=== PATIENT | female | born 1985 | race Caucasian/White ===

== ENCOUNTER 2018-12-19 12:22 | Emergency (ER) | payer OTHER, SELFPAY ==
[2018-12-19 12:33] VITALS: BP 142/87; PULSE 96; RESP 14; TEMP 36.6; O2SAT 98
[2018-12-19 15:32] VITALS: BP 130/94; PULSE 80; RESP 14; O2SAT 98
--- NOTE | 2018-12-19 18:42 | ED_ITS ---
HPI - URI/Sore Throat <MARY Hernandez - Last Filed: 12/19/18 18:42> General Chief Complaint: Upper Respiratory Symptoms Stated Complaint: Sore Throat Time Seen by Provider: 12/19/18 15:04 Source: patient and family Mode of arrival: ambulatory Limitations: no limitations History of Present Illness HPI Narrative: The patient is a 32-year-old female presents with her son for chief complaint of sore throat. Her son at home has strep throat. She states her throat hurts. She has not taken anything. She denies any fevers nausea vomiting or diarrhea. She said she had some ear pain this morning. She denies abdominal pain chest pain cough or congestion. Related Data Previous Rx's Medication Instructions Recorded amoxicillin 875 mg PO BID #20 tab 12/19/18 Allergies Allergy/AdvReac Type Severity Reaction Status Date / Time No Known Drug Allergies Allergy Verified 12/19/18 12:36 Review of Systems <ARY Hernandez - Last Filed: 12/19/18 18:42> Review of Systems GENERAL: Denies chills, fatigue, malaise, fever, sweats. HEENT: See HPI RESPIRATORY: Denies dyspnea, cough, wheezing, hemoptysis, sputum. CARDIOVASCULAR: Denies chest pain, palpitations, orthopnea, edema, GASTROINTESTINAL: Denies nausea, vomiting, abdominal pain, diarrhea, constipation, melena. : Denies dysuria, frequency, incontinence, hematuria, urinary retention. MUSCULOSKELETAL: denies weakness, joint pain, or bony pain SKIN: Denies rash, skin lesions, or other NEUROLOGIC: Denies weakness, headache, numbness, change in speech, confusion, seizures, incoordination. PSYCHIATRIC: No concerning psychosocial issues. 12 point review of systems is negative except for those stated above PFSH <ARY Hernandez - Last Filed: 12/19/18 18:42> Social History Smoking Status: Former smoker Social History Smoking Status: Former smoker Exam <MARY Hernandez - Last Filed: 12/19/18 18:42> Narrative Exam Narrative: GENERAL: This is a well-nourished, well-developed patient, in no acute distress HEAD: Atraumatic. Normocephalic. No temporal or scalp tenderness. EYES: Pupils equal round and reactive. Extraocular motions intact. No scleral icterus. No injection or drainage. ENT: Nose without bleeding, purulent drainage or septal hematoma. Throat without erythema. Throat with bilateral tonsillar hypertrophy and purulent exudate. Uvula midline. Airway patent. NECK: Trachea midline. No JVD or lymphadenopathy. Supple, nontender, no meningeal signs. CARDIOVASCULAR: Regular rate and rhythm without murmurs, gallops, or rubs. RESPIRATORY: Clear to auscultation. Breath sounds equal bilaterally. No wheezes, rales, or rhonchi. No active coughing. No increased respiratory effort. No stridor. No accessory muscle use. GASTROINTESTINAL: Abdomen soft, non-tender, nondistended. No hepato- splenomegaly, or palpable masses. No guarding. EXTREMITIES: No clubbing, cyanosis, or edema. No joint tenderness, effusion, or edema noted. BACK: Nontender without deformity or crepitance. No flank tenderness. NEURO: AOx3. SKIN: No rash or erythema. Initial Vital Signs Initial Vital Signs: Vital Signs Temperature 97.8 F 12/19/18 12:33 Pulse Rate 96 H 12/19/18 12:33 Respiratory Rate 14 12/19/18 12:33 Blood Pressure 142/87 H 12/19/18 12:33 Pulse Oximetry 98 12/19/18 12:33 <Jeanette Olmstead DO - Last Filed: 12/19/18 19:11> Initial Vital Signs Initial Vital Signs: Vital Signs Temperature 97.8 F 12/19/18 12:33 Pulse Rate 96 H 12/19/18 12:33 Respiratory Rate 14 12/19/18 12:33 Blood Pressure 142/87 H 12/19/18 12:33 Pulse Oximetry 98 12/19/18 12:33 Course <MARY Hernandez - Last Filed: 12/19/18 18:42> Vital Signs - 8 hr 12/19/18 12:33 12/19/18 15:32 Temperature 97.8 F Pulse Rate 96 H 80 Respiratory Rate 14 14 Blood Pressure 142/87 H Blood Pressure [Left Arm] 130/94 H Pulse Oximetry 98 98 <Jeanette Olmstead DO - Last Filed: 12/19/18 19:11> Vital Signs - 8 hr 12/19/18 12:33 12/19/18 15:32 Temperature 97.8 F Pulse Rate 96 H 80 Respiratory Rate 14 14 Blood Pressure 142/87 H Blood Pressure [Left Arm] 130/94 H Pulse Oximetry 98 98 MDM - URI/Sore Throat <ERLIN Hernandez-CHINYERE - Last Filed: 12/19/18 18:42> Lab Data Point of Care Testing Rapid Strep A Negative MDM Narrative Medical decision making narrative: The patient is a 32-year-old female who presents with a chief complaint of sore throat. She tested negative for strep. However her tonsils are erythematous with purulent exudate bilaterally. I will treat her for tonsillitis at this time given her symptoms and presentation. Use of amoxicillin. Discussed follow-up with primary care provider. Discussed coming back to the emergency department for any acute concerns. Patient has no questions or concerns on discharge. <Jeanette Olmstead DO - Last Filed: 12/19/18 19:11> Lab Data Point of Care Testing Rapid Strep A Negative Discharge Plan Departure Patient Disposition: Home Clinical Impression: Acute bacterial tonsillitis Discharge Date/Time: 12/19/18 15:38 Interventions: ED Discharge Assessment Last Done: 12/19/18 15:37 Instructions: DI for Pharyngitis/Tonsillopharyngitis -- Adult Activity Restrictions/Additional Instructions: I am treating her for bacterial tonsil infection even though her strep test was negative. Please follow up with your primary care provider for new or worsening symptoms. Please take [id number] medications as needed and able. Please come back to emergency department for any acute concerns such as chest pain shortness of breath or inability keep fluids. Prescriptions: New amoxicillin 875 mg tablet 875 mg PO BID Qty: 20 RF: 0 <Jeanette Olmstead DO - Last Filed: 12/19/18 19:11> Cosign ED Attending Cosnicoleature Attestation: I was immediately available in the department for consultation. This documentation has been reviewed and I agree with assessment and plan. Supervised by Jeanette Olmstead DO
== END 2018-12-19 15:38 | disposition home or self-care (01) ==
PROVIDERS: Emergency Provider Nurse Practitioner Family
DX: J03.80 Acute tonsillitis due to other specified organisms (principal)
CPT/HCPCS: 87880; 99282; 99283